=== PATIENT | male | born 1960 | race Caucasian/White ===

== ENCOUNTER 2016-08-13 19:42 | Emergency (ER) | payer OTHER ==
[~2016-08-13] VITALS: Ht 175.3 cm; Wt 60.0 kg
[~2016-08-13 19:42] MED LIST: CARD360C PO; DEPA500T3 PO; DIPH2%T PO; GABA100C4 PO; KETO2%T TOP; LURA80 PO; PLAV75TA PO; SERT100 PO; TRAZ50TA4 PO; TYLE3 PO; VITA-13 PO
[2016-08-13 19:45] VITALS: BP 116/65; PULSE 85; RESP 16; TEMP 98.2; O2SAT 98
--- NOTE | 2016-08-13 20:06 | PD ---
HPI Chief Complaint: Fall Time Seen by Provider: 19:50 Travel History International Travel<30 days: No Contact w/Intl Traveler<30days: No Traveled to known affect area: No History of Present Illness HPI 55-year-old male who presents via EMS for evaluation after fall. He reports that this evening he slipped at home and fell, striking his left arm/elbow against the ground. He also hit the left side of his head against the ground. No loss of consciousness. He is complaining of pain and laceration to the posterior left elbow, abrasion to the left forearm, mild left-sided head pain. Symptoms are mild, aggravated by movement. Last tetanus vaccination within 5 years. Denies any neck or back pain, chest pain or shortness of breath, abdominal pain, injury to the lower extremities. He endorses daily alcohol use , he reports that he drank beer tonight. He reports a history of stroke with residual left arm weakness. No other complaints. PFSH Past Medical History Hx Anticoagulant Therapy: Yes Arthritis: Yes Bipolar Disorder: Yes ( NON COMPLIANT WITH MEDS) Anxiety: Yes Depression: Yes Cancer: No Cardiovascular Problems: Yes High Cholesterol: Yes Chemotherapy: No Cerebrovascular Accident: Yes Diabetes: No Diminished Hearing: No Gastrointestinal Disorders: No Headaches: Yes Hypertension: Yes Inguinal Hernia: Yes (RIGHT ) Implanted Vascular Access Dvce: No Musculoskeletal: Yes (USES WALKER) Neurologic: Yes (PER HX...PREVIOUS STROKE) Psychiatric: Yes Respiratory: No Integumentary: Yes Immunizations Current: Yes Past Surgical History Abdominal Surgery: Yes (appendectomy) Appendectomy: Yes Neurologic Surgery: No Tonsillectomy: Yes Other Surgery: Yes (PER HX..APPY, CYST ON TOE, HERNIA, TONSILS") Social History Alcohol Use: Yes (DAILY, Four pack) Tobacco Use: Yes (1 PPD) Substance Use: No Allergies-Medications (Allergen,Severity, Reaction): Coded Allergies: Darvocet-N 100 (Verified Allergy, Severe, 08/13/16) Lisinopril (Unverified Allergy, Severe, 08/13/16) SWELLING Propoxyphene (Verified Allergy, Severe, 08/13/16) Reported Meds & Prescriptions Reported Meds & Active Scripts Active Keflex (Cephalexin) 500 Mg Cap 500 Mg PO Q6H 5 Days Review of Systems Except as stated in HPI: all other systems reviewed are Neg Physical Exam Narrative GENERAL: Disheveled appearing male in no acute distress, answering questions appropriately. SKIN: Warm and dry. There is a 1.5 cm linear laceration to the posterior left elbow. Minor abrasion of the dorsal left forearm. HEAD: Atraumatic. Normocephalic. No scalp hematoma or abrasion. EYES: Pupils equal and round. No scleral icterus. No injection or drainage. ENT: No nasal bleeding or discharge. Mucous membranes pink and moist. NECK: Trachea midline. No JVD. CARDIOVASCULAR: Regular rate and rhythm. No murmur appreciated. RESPIRATORY: No accessory muscle use. Clear to auscultation. Breath sounds equal bilaterally. GASTROINTESTINAL: Abdomen soft, non-tender, nondistended. Hepatic and splenic margins not palpable. MUSCULOSKELETAL: Skin as noted above. The patient has limited use of the left shoulder, elbow and wrist secondary to previous CVA. No obvious bony deformity. NEUROLOGICAL: Awake and alert. No obvious cranial nerve deficits. Motor grossly within normal limits. Normal speech. Data Data Last Documented VS Vital Signs Date Time Temp Pulse Resp B/P Pulse Ox O2 Delivery O2 Flow Rate FiO2 08/13/16 19:45 98.2 85 16 116/65 98 Orders Forearm (2vws) (08/13/16 ) Ct Brain W/O Iv Contrast(Rout) (08/13/16 ) Lidocai-Epi 1%-1:100,000 Inj (Xylocaine- (08/13/16 20:15) Elbow, Limited (Ap&Lat) (08/13/16 ) MDM Medical Decision Making Medical Screen Exam Complete: Yes Emergency Medical Condition: Yes Medical Record Reviewed: Yes Interpretation(s) CT brain reveals remote right-sided infarct, no acute abnormalities Differential Diagnosis Laceration, abrasion, open fracture, closed head injury, intracranial hemorrhage Narrative Course 55-year-old male presents after mechanical fall. He has a laceration to the posterior left elbow, abrasion to left forearm. Plan is for left elbow/forearm x-ray, CT of the brain. X-ray and CT imaging revealed no acute abnormalities. The laceration was repaired, the patient gave verbal consent. The laceration was repaired utilizing absorbable sutures as the patient would likely have significant difficulty with follow-up instructions given his history of alcoholism. He is stable for discharge. He is being discharged with a prescription for Keflex. Procedures Procedure Narrative LACERATION LOCATION: Posterior left elbow LENGTH: 1.5 cm NUMBER OF STITCHES/SHYANN: 4 REPAIR: The area of the laceration was prepped with Betadine and sterilely draped. The laceration was infiltrated with 1% lidocaine with epinephrine. The wound was copiously irrigated and explored without evidence of foreign body , tendon injury or neurovascular injury. The wound was closed using 4-0 chromic simple interrupted. This was a single layer repair. A sterile dressing was applied. The patient was advised to keep the dressing clean and dry. Patient tolerated the procedure well. Diagnosis Primary Impression: Laceration of left elbow Qualified Code: S51.012A - Laceration of left elbow, initial encounter Additional Instructions: Wash the wound gently with soap and water and apply antibiotic cream daily. Take antibiotics as prescribed. Follow-up with primary care physician as needed. Return for any emergent medical conditions. Med/Other Pt SpecificInfo: Prescription(s) given Scripts Cephalexin (Keflex)500 Mg [id number] Mg PO Q6H 5 Days Ref 0 Prov:Kayla Cooley MD 08/13/16 Disposition: 01 DISCHARGE HOME Condition: Stable Wilfredo Gutierrez Aug 13, 2016 20:06
[2016-08-13] MEDS ORDERED: LIDOCAINE 1%/EPINEPHrine 1:100,000 SOLN 20 ML VIAL INFIL ONE (20:15)
--- NOTE | 2016-08-13 21:00 | RADRPT ---
EXAM DATE/TIME: 08/13/2016 20:23 [facility] COMPARISON: No previous studies available for comparison. INDICATIONS : Trauma, fall. RADIATION DOSE: 52.13 CTDIvol (mGy) MEDICAL HISTORY : Cerebrovascular disease. Hypertension. SURGICAL HISTORY : None. ENCOUNTER: Initial ACUITY: 1 day PAIN SCALE: 5/10 LOCATION: cranial TECHNIQUE: Multiple contiguous axial images were obtained of the head. Using automated exposure control and adj ustment of the mA and/or kV according to patient size, radiation dose was kept as low as reasonably a chievable to obtain optimal diagnostic quality images. FINDINGS: There is a remote infarct in the right parieto-occipital region. No mass, hemorrhage or shift. No hyd rocephalus. No abnormal extra-axial fluid collections. No acute bony abnormalities. CONCLUSION: 1. Remote right sided infarct as above. No acute findings. Andrae Casas MD on August 13, 2016 at 20:57 Board Certified Radiologist. This report was verified electronically.
--- NOTE | 2016-08-13 21:51 | RADRPT ---
EXAM DATE/TIME: 08/13/2016 20:37 [facility] COMPARISON: No previous studies available for comparison. INDICATIONS : Patient fell landing on left arm. Lacerations to left forearm and left elbow. MEDICAL HISTORY : None. SURGICAL HISTORY : None. ENCOUNTER: Initial ACUITY: 1 day PAIN SCORE: 0/10 LOCATION: Left Forearm FINDINGS: Two view examination of the left forearm demonstrates no evidence of fracture or dislocation. Bony m ineralization is normal. The soft tissue structures are intact. CONCLUSION: Normal examination for a patient of this age. Andrae Casas MD on August 13, 2016 at 21:49 Board Certified Radiologist. This report was verified electronically.
--- NOTE | 2016-08-13 21:54 | RADRPT ---
EXAM DATE/TIME: 08/13/2016 20:39 [facility] COMPARISON: No previous studies available for comparison. INDICATIONS : Patient fell landing on left arm. Laceration to left forearm and elbow. MEDICAL HISTORY : None. SURGICAL HISTORY : None. ENCOUNTER: Initial ACUITY: 1 day PAIN SCORE: Non-responsive. LOCATION: Left Elbow FINDINGS: Two view examination of the left elbow demonstrates no joint effusion, fracture or dislocation. Bony mineralization is normal. CONCLUSION: 1. Soft tissue swelling over the extensor surface of the elbow. No acute fracture identified. Andrae Casas MD on August 13, 2016 at 21:50 Board Certified Radiologist. This report was verified electronically.
[2016-08-13] MEDS ORDERED: CEPH-460 PO (22:06)
[2016-08-14 03:30] VITALS: BP 120/52; PULSE 84; RESP 12; O2SAT 98
[2016-08-14 06:21] VITALS: BP 134/48; PULSE 88; RESP 14; O2SAT 99
== END 2016-08-14 06:48 | disposition home or self-care (01) ==
LOC: NEPB 19:42
DX: S51.012A Laceration without foreign body of left elbow, initial encounter (principal); S50.812A Abrasion of left forearm, initial encounter; I10 Essential (primary) hypertension; R51 Headache; E78.00 Pure hypercholesterolemia, unspecified; F17.210 Nicotine dependence, cigarettes, uncomplicated; W18.09XA Striking against other object with subsequent fall, initial encounter; Y93.9 Activity, unspecified; Y92.009 Unspecified place in unspecified non-institutional (private) residence as the place of occurrence of the external cause
CPT/HCPCS: 12001; 70450; 73070; 73090

== ENCOUNTER 2016-09-08 09:23 | Emergency (ER) | payer OTHER ==
[~2016-09-08] VITALS: Ht 170.2 cm; Wt 70.0 kg
[~2016-09-08 09:23] MED LIST changes: -CARD360C PO; +CEPH-460 PO; -DEPA500T3 PO; -DIPH2%T PO; -GABA100C4 PO; -KETO2%T TOP; -LURA80 PO; -PLAV75TA PO; -SERT100 PO; -TRAZ50TA4 PO; -TYLE3 PO; -VITA-13 PO
[2016-09-08 09:26] VITALS: BP 114/82; PULSE 76; RESP 18; TEMP 98; O2SAT 97
--- NOTE | 2016-09-08 12:25 | PD ---
HPI Chief Complaint: Pain: Acute or Chronic Time Seen by Provider: 12:17 Travel History International Travel<30 days: No Contact w/Intl Traveler<30days: No Traveled to known affect area: No History of Present Illness HPI 56 year old male presents to the emergency department for evaluation of left elbow wound and possible infection. Patient has a chronic wound to the left posterior elbow. He is here with his community case manager from the [place]. Patient fell on August 13 and reopened up his chronic wound to the left elbow. Sutures were placed at that time in the ED. His community case manager states that he saw him a few days after the stitches were placed and the stitches had already fallen out, most likely from patient rubbing his elbow on his chair. He was on 14 days of Keflex by his primary care provider after this occurred. He has been finished with this for approximately 1-2 weeks. The patient denies any pain, fevers/ chills. He has mild drainage from the wound to the left elbow and mild erythema. He has history of stroke with left sided deficit and has chronically reduced ROM of his left elbow, but states he has his typical range of motion. No new falls or other complaints at this time. PFSH Past Medical History Hx Anticoagulant Therapy: Yes Arthritis: Yes Bipolar Disorder: Yes ( NON COMPLIANT WITH MEDS) Anxiety: Yes Depression: Yes Cancer: No Cardiovascular Problems: Yes High Cholesterol: Yes Chemotherapy: No Cerebrovascular Accident: Yes Diabetes: No Diminished Hearing: No Gastrointestinal Disorders: No Headaches: Yes Hypertension: Yes Inguinal Hernia: Yes (RIGHT ) Implanted Vascular Access Dvce: No Musculoskeletal: Yes (USES WALKER) Neurologic: Yes (PER HX...PREVIOUS STROKE) Psychiatric: Yes Respiratory: No Integumentary: Yes Immunizations Current: Yes Past Surgical History Abdominal Surgery: Yes (appendectomy) Appendectomy: Yes Neurologic Surgery: No Tonsillectomy: Yes Other Surgery: Yes (PER HX..APPY, CYST ON TOE, HERNIA, TONSILS") Social History Alcohol Use: Yes (DAILY, Four pack) Tobacco Use: Yes (1 PPD) Substance Use: No Allergies-Medications (Allergen,Severity, Reaction): Coded Allergies: Darvocet-N 100 (Verified Allergy, Severe, 08/13/16) Lisinopril (Unverified Allergy, Severe, 08/13/16) SWELLING Propoxyphene (Verified Allergy, Severe, 08/13/16) Reported Meds & Prescriptions Reported Meds & Active Scripts Active Keflex (Cephalexin) 500 Mg Cap 500 Mg PO Q6H 5 Days Review of Systems Except as stated in HPI: all other systems reviewed are Neg Physical Exam Narrative GENERAL: Thin male patient, afebrile. SKIN: Warm and dry. Patient has a 2 cm chronic wound to the left posterior elbow with mild drainage noted. Mild surrounding erythema. No tenderness to palpation. HEAD: Normocephalic. Atraumatic. EYES: No scleral icterus. No injection or drainage. NECK: Supple, trachea midline. No JVD or lymphadenopathy. CARDIOVASCULAR: Regular rate and rhythm without murmurs, gallops, or rubs. Left radial pulse 2+. RESPIRATORY: Breath sounds equal bilaterally. No accessory muscle use. GASTROINTESTINAL: Abdomen soft, non-tender, nondistended. MUSCULOSKELETAL: No cyanosis, or edema. Patient has limited flexion of the left elbow due to chronic deficit from previous stroke, but has no difficulty moving his elbow. No evidence of septic joint. BACK: Nontender without obvious deformity. No CVA tenderness. Data Data Last Documented VS Vital Signs Date Time Temp Pulse Resp B/P Pulse Ox O2 Delivery O2 Flow Rate FiO2 09/08/16 09:26 98.0 76 18 114/82 97 Room Air Orders Wound Culture And Gram Stain (09/08/16 12:15) Elbow, Limited (Ap&Lat) (09/08/16 ) [facility] Medical Decision Making Medical Screen Exam Complete: Yes Emergency Medical Condition: Yes Medical Record Reviewed: Yes Interpretation(s) x-ray left elbow - CONCLUSION: Bony fragment anterior joint space could be loose body or old fracture fragment. Differential Diagnosis chronic wound vs. cellulitis vs. septic joint Narrative Course 56 year old male presents to the emergency department with his social secretary for evaluation of a chronic wound to his left elbow that he has had for several years. Physical exam shows mild drainage and mild erythema, but no evidence of abscess or septic joint. Patient is afebrile and VSS. Wound culture is taken. X-ray of the left elbow is ordered and pending. X-ray of the left elbow shows bony fragment anterior joint space could be loose body or old fracture fragment. Patient will be discharged with a prescription for clindamycin. He is instructed on proper wound care. He is to follow up with his primary care physician. He is to return to the emergency department for any acute, worsening of symptoms. Diagnosis Primary Impression: Open wound of left elbow Qualified Code: S51.002A - Open wound of left elbow, initial encounter Referrals: Primary Care Physician call for appointment Patient Instructions: Chronic Wound Care (ED), General Instructions Additional Instructions: Clean twice daily with soap and water and apply over the counter antibiotic ointment. Take antibiotic as directed until gone. Follow up with your primary care physician in 2 days. Return to the emergency department for any acute, worsening of symptoms. Med/Other Pt SpecificInfo: Prescription(s) given Scripts Clindamycin 300 Mg [id number] Mg PO Q6H 10 Days Ref 0 Prov:Lin Toussaint 09/08/16 Disposition: 01 DISCHARGE HOME Condition: Stable Lin Tuossaint Sep 08, 2016 12:25
--- NOTE | 2016-09-08 12:48 | RADRPT ---
EXAM DATE/TIME: 09/08/2016 12:32 [facility] COMPARISON: No previous studies available for comparison. INDICATIONS : Left elbow pain, fall out of wheelchair. MEDICAL HISTORY : None. SURGICAL HISTORY : None. ENCOUNTER: Initial ACUITY: 1 day PAIN SCORE: 6/10 LOCATION: Left elbow FINDINGS: Two view examination of the left elbow demonstrates degenerative changes. There is a bony fragment in the anterior joint space likely loose body or old fracture fragment. Soft tissue swelling posteriorl y. CONCLUSION: Bony fragment anterior joint space could be loose body or old fracture fragment. Jose Griggs MD on September 08, 2016 at 12:42 Board Certified Radiologist. This report was verified electronically.
[2016-09-08] MEDS ORDERED: CLIN1CAP6 PO (12:51)
== END 2016-09-08 14:09 | disposition home or self-care (01) ==
LOC: NETRI 09:23
DX: S51.002D Unspecified open wound of left elbow, subsequent encounter (principal); B95.61 Methicillin susceptible Staphylococcus aureus infection as the cause of diseases classified elsewhere; B96.5 Pseudomonas (aeruginosa) (mallei) (pseudomallei) as the cause of diseases classified elsewhere; I25.2 Old myocardial infarction; I10 Essential (primary) hypertension; F17.210 Nicotine dependence, cigarettes, uncomplicated; W05.0XXD Fall from non-moving wheelchair, subsequent encounter; Z88.5 Allergy status to narcotic agent; Z79.01 Long term (current) use of anticoagulants; Z88.8 Allergy status to other drugs, medicaments and biological substances
CPT/HCPCS: 73070; 86403; 87070; 87077; 87186; 87205; 99283

== ENCOUNTER 2017-02-08 17:52 | Emergency (ER) | payer OTHER ==
[~2017-02-08] VITALS: Ht 172.7 cm; Wt 65.0 kg
[~2017-02-08 17:52] MED LIST changes: +CLIN1CAP6 PO
[2017-02-08 18:01] VITALS: BP 118/79; PULSE 124; RESP 16; TEMP 98.1; O2SAT 97
== END 2017-02-08 20:21 | disposition left against medical advice (07) ==
LOC: NEPD 17:52
DX: Z04.3 Encounter for examination and observation following other accident (principal); Z53.21 Procedure and treatment not carried out due to patient leaving prior to being seen by health care provider
CPT/HCPCS: 99281

== ENCOUNTER 2017-02-16 23:50 | Emergency (ER) | payer OTHER ==
[~2017-02-16] VITALS: Ht 170.2 cm; Wt 60.0 kg
[2017-02-16 23:59] VITALS: BP 96/56; PULSE 69; RESP 18; TEMP 99.1; O2SAT 95
--- NOTE | 2017-02-17 00:15 | PD ---
HPI Chief Complaint: Psychiatric Symptoms Time Seen by Provider: 00:13 Travel History International Travel<30 days: No Contact w/Intl Traveler<30days: No Traveled to known affect area: No History of Present Illness HPI Patient comes in under a [place] act by police for going in and out of traffic per [place] act. 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 Patient denies any medical concerns at this time. Denies any chest pain, shortness of breath, fevers, bowel pain, nausea, vomiting, or headaches. Patient has residual left-sided weakness from a stroke that occurred 3 or 4 years ago. Patient denies any homicidal or suicidal ideations. PFSH Past Medical History Hx Anticoagulant Therapy: Yes Arthritis: Yes Bipolar Disorder: Yes ( NON COMPLIANT WITH MEDS) Anxiety: Yes Depression: Yes Cancer: No Cardiovascular Problems: Yes High Cholesterol: Yes Chemotherapy: No Cerebrovascular Accident: Yes Diabetes: No Diminished Hearing: No Gastrointestinal Disorders: No Headaches: Yes Hypertension: Yes Inguinal Hernia: Yes (RIGHT ) Implanted Vascular Access Dvce: No Musculoskeletal: Yes (USES WALKER) Neurologic: Yes (PER HX...PREVIOUS STROKE) Psychiatric: Yes Respiratory: No Integumentary: Yes Immunizations Current: Yes Tetanus Vaccination: Unknown Influenza Vaccination: No Past Surgical History Abdominal Surgery: Yes (appendectomy) Appendectomy: Yes Neurologic Surgery: No Tonsillectomy: Yes Other Surgery: Yes (PER HX..APPY, CYST ON TOE, HERNIA, TONSILS") Social History Alcohol Use: Yes (DAILY, Four pack) Tobacco Use: Yes (1 PPD) Substance Use: No Allergies-Medications (Allergen,Severity, Reaction): Coded Allergies: Darvocet-N 100 (Verified Allergy, Severe, 08/13/16) Lisinopril (Unverified Allergy, Severe, 08/13/16) SWELLING Propoxyphene (Verified Allergy, Severe, 08/13/16) Reported Meds & Prescriptions Reported Meds & Active Scripts Active Clindamycin (Clindamycin HCl) 300 Mg Cap 300 Mg PO Q6H 10 Days Keflex (Cephalexin) 500 Mg Cap 500 Mg PO Q6H 5 Days Review of Systems Except as stated in HPI: all other systems reviewed are Neg Physical Exam Narrative GENERAL: Well-developed, under nourished, in no acute distress, and non-ill appearing. SKIN: Focused skin assessment warm and dry. HEAD: Atraumatic. Normocephalic. EYES: Pupils equal and round. EOMI. No scleral icterus. No injection or drainage. ENT: No nasal bleeding or discharge. Mucous membranes pink and moist. NECK: Trachea midline. Supple. No nuclear rigidity. CARDIOVASCULAR: Regular rate and rhythm. No murmur appreciated. RESPIRATORY: No accessory muscle use. No respiratory distress. Clear to auscultation. Breath sounds equal bilaterally. MUSCULOSKELETAL: No obvious deformities. No clubbing. No cyanosis. No edema. Decreased range of motion left hand from previous stroke. NEUROLOGICAL: Awake and alert. No obvious cranial nerve deficits. Motor grossly within normal limits. Normal speech. PSYCHIATRIC: Appropriate mood and affect; insight and judgment normal. Data Data Last Documented VS Vital Signs Date Time Temp Pulse Resp B/P Pulse Ox O2 Delivery O2 Flow Rate FiO2 02/16/17 23:59 99.1 69 18 96/56 95 Orders Complete Blood Count With Diff (02/17/17 00:11) Comprehensive Metabolic Panel (02/17/17 00:11) Psych Screen (02/17/17 00:11) Drug Screen, Random Urine (02/17/17 00:11) Alcohol (Ethanol) (02/17/17 00:11) Salicylates (Aspirin) (02/17/17 00:11) Tylenol (Acetaminophen) (02/17/17 00:11) Potassium Chloride (Kcl) (02/17/17 01:45) Labs Laboratory Tests Test 02/17/17 00:40 White Blood Count 5.3 TH/MM3 Red Blood Count 4.37 MIL/MM3 Hemoglobin 13.9 GM/DL Hematocrit 42.3 % Mean Corpuscular Volume 96.8 FL Mean Corpuscular Hemoglobin 31.8 PG Mean Corpuscular Hemoglobin 32.8 % Concent Red Cell Distribution Width 15.3 % Platelet Count 114 TH/MM3 Mean Platelet Volume 10.6 FL Neutrophils (%) (Auto) 62.1 % Lymphocytes (%) (Auto) 29.3 % Monocytes (%) (Auto) 5.5 % Eosinophils (%) (Auto) 2.1 % Basophils (%) (Auto) 1.0 % Neutrophils # (Auto) 3.3 TH/MM3 Lymphocytes # (Auto) 1.6 TH/MM3 Monocytes # (Auto) 0.3 TH/MM3 Eosinophils # (Auto) 0.1 TH/MM3 Basophils # (Auto) 0.1 TH/MM3 CBC Comment DIFF FINAL Differential Comment Sodium Level 144 MEQ/L Potassium Level 3.3 MEQ/L Chloride Level 112 MEQ/L Carbon Dioxide Level 21.6 MEQ/L Anion Gap 10 MEQ/L Blood Urea Nitrogen 21 MG/DL Creatinine 1.27 MG/DL Estimat Glomerular Filtration 59 ML/MIN Rate Random Glucose 78 MG/DL Calcium Level 8.8 MG/DL Total Bilirubin 0.1 MG/DL Aspartate Amino Transf 15 U/L (AST/SGOT) Alanine Aminotransferase 18 U/L (ALT/SGPT) Alkaline Phosphatase 63 U/L Total Protein 6.5 GM/DL Albumin 3.4 GM/DL Salicylates Level 3.5 MG/DL Acetaminophen Level LESS THAN 2.0 MCG/ML Ethyl Alcohol Level 20 MG/DL MDM Medical Decision Making Medical Screen Exam Complete: Yes Emergency Medical Condition: Yes Differential Diagnosis Homicidal, suicidal, depression, electrolyte abnormality, other Narrative Course Patient was seen and examined. Labs were obtained and reviewed with exception urine drug screen has not been set yet. Patient's potassium was replaced orally. Patient medically cleared for further treatment and evaluation by psych. Final disposition per psych. Diagnosis Primary Impression: Hypokalemia Additional Impression: Medical clearance for psychiatric admission Condition: Stable Kun Robles Feb 17, 2017 00:15
[2017-02-17 00:51] LABS: AUTOMATED NEUTROPHIL # 3.3 TH/MM3 (1.8-7.7); BASOPHIL # 0.1 TH/MM3 (0-0.2); EOSINOPHIL # 0.1 TH/MM3 (0-0.4); EOSINOPHIL % 2.1 % (0.0-4.0); HEMATOCRIT 42.3 % (39.0-51.0); HEMO FLAGS DIFF FINAL; LYMPH % 29.3 % (9.0-44.0); LYMPHOCYTE # 1.6 TH/MM3 (1.0-4.8); MEAN CELL VOLUME 96.8 FL (80.0-100.0); MEAN CORPUSCULAR HEMOGLOBIN 31.8 PG (27.0-34.0); MEAN CORPUSCULAR HGB CONC 32.8 % (32.0-36.0); MONO % 5.5 % (0.0-8.0); NEUT % 62.1 % (16.0-70.0); PLATELET COUNT 114 TH/MM3 (150-450); RED BLOOD COUNT 4.37 MIL/MM3 (4.50-5.90); RED CELL DISTRIBUTION WIDTH 15.3 % (11.6-17.2); WHITE BLOOD COUNT 5.3 TH/MM3 (4.0-11.0)
[2017-02-17 01:09] LABS: ACETAMINOPHEN LESS THAN 2.0 MCG/ML (10.0-30.0); ALT (GPT) 18 U/L (12-78); ANION GAP 10 MEQ/L (5-15); AST (GOT) 15 U/L (15-37); BICARBONATE 21.6 MEQ/L (21.0-32.0); BLOOD UREA NITROGEN 21 MG/DL (7-18); CHLORIDE 112 MEQ/L (98-107); GLOMERULAR FILTRATION RATE 59 ML/MIN (>89); POTASSIUM 3.3 MEQ/L (3.5-5.1); SODIUM (NA) 144 MEQ/L (136-145)
[2017-02-17 01:10] LABS: ALKALINE PHOSPHATASE 63 U/L (45-117); TOTAL BILIRUBIN ADULT 0.1 MG/DL (0.2-1.0)
[2017-02-17] MEDS ORDERED: POTASSIUM CHLORIDE 20 MEQ CONTROLLED RELEASE TAB PO ONE (01:45)
[2017-02-17 04:40] VITALS: BP 103/71; PULSE 51; RESP 18; O2SAT 97
--- NOTE | 2017-02-17 11:34 | PD.PSY.CON ---
Provisional Diagnosis Admission Date History of Present Illness Service Psychiatry Consult Requested By Primary Care Physician [facility] HPI Patient is a 50-year-old man, domicile in [facility], single, , on SSI, service-connected, with psychiatric history of bipolar disorder, he is on Zyprexa 20 mg daily, [facility], medical history of CVAs, HTN , who comes in under a Reed act by police for going in and out of traffic per Reed act. 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 On psychiatric evaluation today the patient is calm, cooperative and pleasant. Patient says that he was doing nothing wrong with police Reed acting him. He says that he was just asking for some money to people. Patient denies depressive symptoms, anxiety, barbara or psychosis. Patient denies suicidal and homicidal ideation, he denies visual and auditory hallucinations. Patient is future oriented, compliant with medications, he was supposed to have an appointment with psychiatry today. Oriented 3, no attention deficit, patient reports daily use of alcohol, 4-6 beers per day, he denies withdrawal symptoms, he denies history of detox rehabs. Review of Systems Constitutional: DENIES: Diaphoretic episodes, Fatigue, Fever, Weight gain, Weight loss, Chills, Dizziness, Change in appetite, Night Sweats Endocrine: DENIES: Heat/cold intolerance, Polydipsia, Polyuria, Polyphagia Eyes: DENIES: Blurred vision, Diplopia, Eye inflammation, Eye pain, Vision loss , Photosensitivity, Double Vision Ears, nose, mouth, throat: DENIES: Tinnitus, Hearing loss, Vertigo, Nasal discharge, Oral lesions, Throat pain, Hoarseness, Ear Pain, Running Nose, Epistaxis, Sinus Pain, Toothache, Odynophagia Respiratory: DENIES: Apneas, Cough, Snoring, Wheezing, Hemoptysis, Sputum production, Shortness of breath Cardiovascular: DENIES: Chest pain, Palpitations, Syncope, Dyspnea on Exertion , PND, Lower Extremity Edema, Orthopnea, Claudication Gastrointestinal: DENIES: Abdominal pain, Black stools, Bloody stools, Constipation, Diarrhea, Nausea, Vomiting, Difficulty Swallowing, Anorexia Musculoskeletal: DENIES: Joint pain, Muscle aches, Stiffness, Joint Swelling, Back pain, Neck pain Integumentary: DENIES: Abnormal pigmentation, Nail changes, Pruritus, Rash Hematologic/lymphatic: DENIES: Bruising, Lymphadenopathy Immunologic/allergic: DENIES: Eczema, Urticaria Neurologic: DENIES: Abnormal gait, Headache, Localized weakness, Paresthesias, Seizures, Speech Problems, Tremor, Poor Balance Psychiatric: DENIES: Anxiety, Confusion, Mood changes, Depression, Hallucinations, Agitation, Suicidal Ideation, Homicidal Ideation, Delusions Past Family Social History Coded Allergies: Darvocet-N 100 (Verified Allergy, Severe, 08/13/16) Lisinopril (Unverified Allergy, Severe, 08/13/16) SWELLING Propoxyphene (Verified Allergy, Severe, 08/13/16) Discontinued Scripts Clindamycin 300 Mg [id number] Mg PO Q6H 10 Days Ref 0 Prov:Lin Toussaint 09/08/16 Cephalexin (Keflex)500 Mg [id number] Mg PO Q6H 5 Days Ref 0 Prov:Kayla Coolye MD 08/13/16 Family History Patient denies family psychiatric history Social History Patient was born and raised in [place], he lives in [place], he is single, he lives with a roommate, he is on SSI, he also has [facility] benefits, , service- connected, his highest level vocations are some college credits Patient's Strengths (min. 2) Outpatient psychiatric care Physical Exam No tremors, no withdrawal, no psychomotor retardation or agitation, Vital Signs Vital Signs Date Time Temp Pulse Resp B/P Pulse Ox O2 Delivery O2 Flow Rate FiO2 02/17/17 04:40 51 18 103/71 97 Room Air 02/16/17 23:59 99.1 Lab Results Labs Laboratory Tests Test 02/17/17 00:40 White Blood Count 5.3 TH/MM3 Red Blood Count 4.37 MIL/MM3 Hemoglobin 13.9 GM/DL Hematocrit 42.3 % Mean Corpuscular Volume 96.8 FL Mean Corpuscular Hemoglobin 31.8 PG Mean Corpuscular Hemoglobin 32.8 % Concent Red Cell Distribution Width 15.3 % Platelet Count 114 TH/MM3 Mean Platelet Volume 10.6 FL Neutrophils (%) (Auto) 62.1 % Lymphocytes (%) (Auto) 29.3 % Monocytes (%) (Auto) 5.5 % Eosinophils (%) (Auto) 2.1 % Basophils (%) (Auto) 1.0 % Neutrophils # (Auto) 3.3 TH/MM3 Lymphocytes # (Auto) 1.6 TH/MM3 Monocytes # (Auto) 0.3 TH/MM3 Eosinophils # (Auto) 0.1 TH/MM3 Basophils # (Auto) 0.1 TH/MM3 CBC Comment DIFF FINAL Differential Comment Sodium Level 144 MEQ/L Potassium Level 3.3 MEQ/L Chloride Level 112 MEQ/L Carbon Dioxide Level 21.6 MEQ/L Anion Gap 10 MEQ/L Blood Urea Nitrogen 21 MG/DL Creatinine 1.27 MG/DL Estimat Glomerular Filtration 59 ML/MIN Rate Random Glucose 78 MG/DL Calcium Level 8.8 MG/DL Total Bilirubin 0.1 MG/DL Aspartate Amino Transf 15 U/L (AST/SGOT) Alanine Aminotransferase 18 U/L (ALT/SGPT) Alkaline Phosphatase 63 U/L Total Protein 6.5 GM/DL Albumin 3.4 GM/DL Salicylates Level 3.5 MG/DL Acetaminophen Level LESS THAN 2.0 MCG/ML Ethyl Alcohol Level 20 MG/DL Mental Status Examination Appearance man, he looks older than his stated age, poor hygiene, he is calm and cooperative, Speech: Unremarkable Orientation: x3 Memory: Unremarkable Thought Process: Logical Thought Content: Unremarkable Hallucination Type: None Attention and Concentration: Good Suicidal Ideation: No Previous Suicide Attempts: No Homicidal Ideation: No Previous Homicide Attempts: No Judgment: WNL Affect: Good Mood: Appropriate Motor Activity: Normal gait Assessment & Plan Problem List: (1) Alcohol abuse with alcohol-induced mood disorder Assessment & Plan: At the moment of this evaluation the patient doesn't present any evidence of substantial depression, anxiety, barbara or psychosis. Patient denies suicidal and homicidal ideation, he denies visual and auditory hallucinations. She reports daily use of alcohol, but now clinically sober, no withdrawal symptoms. Patient is logical, coherent and relevant. Oriented 3. I did not see any indication for psychiatric admission at this moment. [facility], continue olanzapine 20 mg. Reed act will be lifted.. ICD Code: F10.14 Assessment & Plan Estimated LOS: Jose Francisco Hurd MD Feb 17, 2017 11:34
== END 2017-02-17 09:11 | disposition home or self-care (01) ==
LOC: NEPD 23:50
DX: Z02.89 Encounter for other administrative examinations (principal); E87.6 Hypokalemia; F10.14 Alcohol abuse with alcohol-induced mood disorder; I10 Essential (primary) hypertension; E78.00 Pure hypercholesterolemia, unspecified; F17.200 Nicotine dependence, unspecified, uncomplicated; Z79.01 Long term (current) use of anticoagulants; Z86.79 Personal history of other diseases of the circulatory system; Z87.39 Personal history of other diseases of the musculoskeletal system and connective tissue; Z86.59 Personal history of other mental and behavioral disorders; Z86.69 Personal history of other diseases of the nervous system and sense organs
CPT/HCPCS: 80053; 80307; 85025; 99283

== ENCOUNTER 2017-02-26 19:28 | Emergency (ER) | payer OTHER ==
[~2017-02-26] VITALS: Ht 170.2 cm; Wt 64.0 kg
--- NOTE | 2017-02-26 19:40 | PD ---
HPI Chief Complaint: MED CLEARANCE Time Seen by Provider: 19:38 Travel History International Travel<30 days: No Contact w/Intl Traveler<30days: No Traveled to known affect area: No History of Present Illness HPI PATIENT BROUGHT IN BY BI CANELA A JAMESON ACT....REASON FOR BA IS DUE TO RUNNING ONTO ONCOMING TRAFFIC WHILE CHASING OTHER CARS. PFSH Past Medical History Hx Anticoagulant Therapy: Yes Arthritis: Yes Bipolar Disorder: Yes ( NON COMPLIANT WITH MEDS) Anxiety: Yes Depression: Yes Cancer: No Cardiovascular Problems: Yes High Cholesterol: Yes Chemotherapy: No Cerebrovascular Accident: Yes Diabetes: No Diminished Hearing: No Gastrointestinal Disorders: No Headaches: Yes Hypertension: Yes Inguinal Hernia: Yes (RIGHT ) Implanted Vascular Access Dvce: No Musculoskeletal: Yes (USES WALKER) Neurologic: Yes (PER HX...PREVIOUS STROKE) Psychiatric: Yes Respiratory: No Integumentary: Yes Immunizations Current: Yes Past Surgical History Abdominal Surgery: Yes (appendectomy) Appendectomy: Yes Neurologic Surgery: No Tonsillectomy: Yes Other Surgery: Yes (PER HX..APPY, CYST ON TOE, HERNIA, TONSILS") Social History Alcohol Use: Yes (DAILY, Four pack) Tobacco Use: Yes (1 PPD) Substance Use: No Allergies-Medications (Allergen,Severity, Reaction): Coded Allergies: Darvocet-N 100 (Verified Allergy, Severe, 02/26/17) Lisinopril (Unverified Allergy, Severe, 02/26/17) SWELLING Propoxyphene (Verified Allergy, Severe, 02/26/17) Reported Meds & Prescriptions Reported Meds & Active Scripts Active Active Prescriptions or Reported Medications Unobtainable Review of Systems Except as stated in HPI: all other systems reviewed are Neg Physical Exam Narrative GENERAL: POORLY KEPT SKIN: Warm and dry. HEAD: Atraumatic. Normocephalic. EYES: Pupils equal and round. No scleral icterus. No injection or drainage. ENT: No nasal bleeding or discharge. Mucous membranes pink and moist. NECK: Trachea midline. No JVD. CARDIOVASCULAR: Regular rate and rhythm. RESPIRATORY: No accessory muscle use. Clear to auscultation. Breath sounds equal bilaterally. GASTROINTESTINAL: Abdomen soft, non-tender, nondistended. Hepatic and splenic margins not palpable. MUSCULOSKELETAL: Extremities without clubbing, cyanosis, or edema. No obvious deformities. NEUROLOGICAL: Awake and alert. No obvious cranial nerve deficits. Motor grossly within normal limits. Five out of 5 muscle strength in the arms and legs EXCEPT LUE WHICH IS IN FLEXED/CONTRACTED STATE. Normal speech. PSYCHIATRIC: Appropriate mood and affect; insight and judgment normal. Data Data Last Documented VS Vital Signs Date Time Temp Pulse Resp B/P Pulse Ox O2 Delivery O2 Flow Rate FiO2 02/27/17 08:23 57 16 165/105 97 Room Air 02/26/17 19:41 98.9 Orders Complete Blood Count With Diff (02/26/17 19:41) Comprehensive Metabolic Panel (02/26/17 19:41) Thyroid Stimulating Hormone (02/26/17 19:41) Urinalysis - C+S If Indicated (02/26/17 19:41) Electrocardiogram (02/26/17 19:41) Psych Screen (02/26/17 19:41) Drug Screen, Random Urine (02/26/17 19:41) Alcohol (Ethanol) (02/26/17 19:41) Salicylates (Aspirin) (02/26/17 19:41) Tylenol (Acetaminophen) (02/26/17 19:41) Diet Regular Basic (02/27/17 Breakfast) Labs Laboratory Tests Test 02/26/17 02/27/17 19:55 02:15 White Blood Count 7.9 TH/MM3 Red Blood Count 4.48 MIL/MM3 Hemoglobin 14.3 GM/DL Hematocrit 42.7 % Mean Corpuscular Volume 95.3 FL Mean Corpuscular Hemoglobin 32.0 PG Mean Corpuscular Hemoglobin 33.5 % Concent Red Cell Distribution Width 14.7 % Platelet Count 92 TH/MM3 Mean Platelet Volume 9.9 FL Neutrophils (%) (Auto) 78.6 % Lymphocytes (%) (Auto) 14.3 % Monocytes (%) (Auto) 6.0 % Eosinophils (%) (Auto) 0.6 % Basophils (%) (Auto) 0.5 % Neutrophils # (Auto) 6.2 TH/MM3 Lymphocytes # (Auto) 1.1 TH/MM3 Monocytes # (Auto) 0.5 TH/MM3 Eosinophils # (Auto) 0.1 TH/MM3 Basophils # (Auto) 0.0 TH/MM3 CBC Comment AUTO DIFF Differential Comment AUTO DIFF CONFIRMED Platelet Estimate LOW Platelet Morphology Comment NORMAL Sodium Level 145 MEQ/L Potassium Level 3.6 MEQ/L Chloride Level 113 MEQ/L Carbon Dioxide Level 25.7 MEQ/L Anion Gap 6 MEQ/L Blood Urea Nitrogen 24 MG/DL Creatinine 1.30 MG/DL Estimat Glomerular Filtration 57 ML/MIN Rate Random Glucose 93 MG/DL Calcium Level 8.6 MG/DL Total Bilirubin 0.4 MG/DL Aspartate Amino Transf 30 U/L (AST/SGOT) Alanine Aminotransferase 30 U/L (ALT/SGPT) Alkaline Phosphatase 66 U/L Total Protein 6.8 GM/DL Albumin 3.8 GM/DL Thyroid Stimulating Hormone 2.840 uIU/ML 3rd Gen Salicylates Level 4.1 MG/DL Acetaminophen Level LESS THAN 2.0 MCG/ML Ethyl Alcohol Level LESS THAN 3 MG/DL Urine Color YELLOW Urine Turbidity CLEAR Urine pH 6.5 Urine Specific [place] 1.023 Urine Protein TRACE mg/dL Urine Glucose (UA) NEG mg/dL Urine Ketones NEG mg/dL Urine Occult Blood NEG Urine Nitrite NEG Urine Bilirubin NEG Urine Urobilinogen 2.0 MG/DL Urine Leukocyte Esterase NEG Urine WBC 1 /hpf Urine Mucus FEW /lpf Microscopic Urinalysis Comment CULT NOT INDICATED Urine Opiates Screen NEG Urine Barbiturates Screen NEG Urine Amphetamines Screen NEG Urine Benzodiazepines Screen NEG Urine Cocaine Screen POS Urine Cannabinoids Screen NEG MDM Medical Decision Making Medical Screen Exam Complete: Yes Emergency Medical Condition: Yes Medical Record Reviewed: Yes Interpretation(s) NSR 70, NL INTERVALS, P MITRALE, NO STEMI PATTERN Differential Diagnosis electrolyte abnl v intoxication v thyroid dz Narrative Course patient found to have nl electrolytes, nl thyroid function, and only marijuana on board....pt medically cleared for psych Diagnosis Primary Impression: Medical clearance for psychiatric admission Scripts Unable to Obtain Active Prescriptions or Reported Meds Neno Duke MD Feb 26, 2017 19:40
[2017-02-26 19:41] VITALS: BP 116/78; PULSE 82; RESP 15; TEMP 98.9; O2SAT 96
[2017-02-26 20:32] LABS: AUTOMATED NEUTROPHIL # 6.2 TH/MM3 (1.8-7.7); BASOPHIL % 0.5 % (0.0-2.0); EOSINOPHIL # 0.1 TH/MM3 (0-0.4); EOSINOPHIL % 0.6 % (0.0-4.0); HEMATOCRIT 42.7 % (39.0-51.0); LYMPH % 14.3 % (9.0-44.0); LYMPHOCYTE # 1.1 TH/MM3 (1.0-4.8); MEAN CELL VOLUME 95.3 FL (80.0-100.0); MEAN CORPUSCULAR HGB CONC 33.5 % (32.0-36.0); NEUT % 78.6 % (16.0-70.0); PLATELET COUNT 92 TH/MM3 (150-450); RED BLOOD COUNT 4.48 MIL/MM3 (4.50-5.90); RED CELL DISTRIBUTION WIDTH 14.7 % (11.6-17.2); WHITE BLOOD COUNT 7.9 TH/MM3 (4.0-11.0)
[2017-02-26 20:37] LABS: ANION GAP 6 MEQ/L (5-15); AST (GOT) 30 U/L (15-37); BICARBONATE 25.7 MEQ/L (21.0-32.0); BLOOD UREA NITROGEN 24 MG/DL (7-18); CHLORIDE 113 MEQ/L (98-107); GLOMERULAR FILTRATION RATE 57 ML/MIN (>89); POTASSIUM 3.6 MEQ/L (3.5-5.1); SODIUM (NA) 145 MEQ/L (136-145)
[2017-02-26 20:41] LABS: HEMO FLAGS AUTO DIFF
[2017-02-26 20:46] LABS: ALKALINE PHOSPHATASE 66 U/L (45-117); ALT (GPT) 30 U/L (12-78); TOTAL BILIRUBIN ADULT 0.4 MG/DL (0.2-1.0)
[2017-02-26 20:50] LABS: ACETAMINOPHEN LESS THAN 2.0 MCG/ML (10.0-30.0)
[2017-02-26 21:16] LABS: PLATELET ESTIMATE SMEAR LOW (NORMAL); PLATELET MORPHOLOGY NORMAL (NORMAL); SCAN/DIFF AUTO DIFF CONFIRMED
[2017-02-27 02:38] LABS: BLOOD, URINE NEG (NEG); COMMENT (UR) CULT NOT INDICATED; CULTURE IF INDICATED CULT NOT INDICATED; GLUCOSE,URINE NEG (NEG); KETONE, URINE NEG (NEG); MUCUS URINE FEW /lpf (OCC); NITRITE,URINE NEG (NEG); PH, URINE 6.5 (5.0-8.5); URINE COLOR YELLOW (YELLW/STRAW)
[2017-02-27 02:46] LABS: AMPHETAMINE, URINE NEG (NEG); BARBITURATES, URINE NEG (NEG); COCAINE, URINE POS (NEG)
[2017-02-27 08:23] VITALS: BP 165/105; PULSE 57; RESP 16; O2SAT 97
--- NOTE | 2017-02-27 12:10 | PD.PSY.CON ---
Provisional Diagnosis Admission Date Date of consultation 02/27/2017 [place] I. 1. Polysubstance abuse [place] II. Deferred History of Present Illness Service Psychiatry Consult Requested By Emergency department Reason for Consult Reed act Primary Care Physician [facility] Mr. Schaeffer is a 56-year-old male with a reported history of bipolar disorder and a chart history of alcohol use disorder who presents under a Reed act by law enforcement alleging that the patient wandered into traffic. The patient was apparently just trying to [place]. Reviewing the electronic medical record, I note that the patient was seen in consultation by Dr. Llamas at the end of January. Patient seen and examined. Chart reviewed. There has been no evidence of any suicidality or homicidality in the ED. On my examination today, the patient says "I was just getting some money from cars" He denies any suicidal or homicidal ideation, intent or plan on direct questioning. He does admit to feeling depressed" now and then" in response to life stressors, but I can elicit no severe depressive symptoms at this time. No hypomanic or manic symptoms. Sleep and appetite are fair. Denies audiovisual hallucinations. No evident delusions. Remainder of psychiatric ROS is negative. Patient is requesting discharge from the ED this afternoon. Past psychiatric history: Patient reports a history of bipolar disorder. Follows at the [facility] and takes Zyprexa with which he reports he is adherent. He reports he hasn't been psychiatrically admitted in several years. He denies history of suicide attempts. Family history: Patient denies family history of mental illness or suicide. Chemical dependency history: Patient reports occasional use alcohol. He denies history of blackouts, DTs or seizures. His urine toxicology was positive for cocaine, for which she provides no explanation. Social history: The patient lives up in [place] [facility]. He is single. He has a daughter in [place]. He is college educated. 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 He served in the [employer]. He denies any access to guns or firearms. Review of Systems Except as stated in HPI: all other systems reviewed are Neg Past Family Social History Coded Allergies: Darvocet-N 100 (Verified Allergy, Severe, 02/26/17) Lisinopril (Unverified Allergy, Severe, 02/26/17) SWELLING Propoxyphene (Verified Allergy, Severe, 02/26/17) Past Medical History See electronic medical record Unable to Obtain Active Prescriptions or Reported Meds Reports that he takes Zyprexa at home. Patient's Strengths (min. 2) Maintaining basic hygiene. Verbally fluent. Physical Exam Physical exam completed by ED provider. On my examination today, the patient appears to be in no acute physical distress. No motor abnormalities noted. No signs of intoxication or withdrawal noted. Labs and vitals reviewed: Vital Signs Vital Signs Date Time Temp Pulse Resp B/P Pulse Ox O2 Delivery O2 Flow Rate FiO2 02/27/17 08:23 57 16 165/105 97 Room Air 02/26/17 19:41 98.9 Lab Results Laboratory Tests Test 02/26/17 02/27/17 19:55 02:15 White Blood Count 7.9 TH/MM3 Red Blood Count 4.48 MIL/MM3 Hemoglobin 14.3 GM/DL Hematocrit 42.7 % Mean Corpuscular Volume 95.3 FL Mean Corpuscular Hemoglobin 32.0 PG Mean Corpuscular Hemoglobin 33.5 % Concent Red Cell Distribution Width 14.7 % Platelet Count 92 TH/MM3 Mean Platelet Volume 9.9 FL Neutrophils (%) (Auto) 78.6 % Lymphocytes (%) (Auto) 14.3 % Monocytes (%) (Auto) 6.0 % Eosinophils (%) (Auto) 0.6 % Basophils (%) (Auto) 0.5 % Neutrophils # (Auto) 6.2 TH/MM3 Lymphocytes # (Auto) 1.1 TH/MM3 Monocytes # (Auto) 0.5 TH/MM3 Eosinophils # (Auto) 0.1 TH/MM3 Basophils # (Auto) 0.0 TH/MM3 CBC Comment AUTO DIFF Differential Comment AUTO DIFF CONFIRMED Platelet Estimate LOW Platelet Morphology Comment NORMAL Sodium Level 145 MEQ/L Potassium Level 3.6 MEQ/L Chloride Level 113 MEQ/L Carbon Dioxide Level 25.7 MEQ/L Anion Gap 6 MEQ/L Blood Urea Nitrogen 24 MG/DL Creatinine 1.30 MG/DL Estimat Glomerular Filtration 57 ML/MIN Rate Random Glucose 93 MG/DL Calcium Level 8.6 MG/DL Total Bilirubin 0.4 MG/DL Aspartate Amino Transf 30 U/L (AST/SGOT) Alanine Aminotransferase 30 U/L (ALT/SGPT) Alkaline Phosphatase 66 U/L Total Protein 6.8 GM/DL Albumin 3.8 GM/DL Thyroid Stimulating Hormone 2.840 uIU/ML 3rd Gen Salicylates Level 4.1 MG/DL Acetaminophen Level LESS THAN 2.0 MCG/ML Ethyl Alcohol Level LESS THAN 3 MG/DL Urine Color YELLOW Urine Turbidity CLEAR Urine pH 6.5 Urine Specific [place] 1.023 Urine Protein TRACE mg/dL Urine Glucose (UA) NEG mg/dL Urine Ketones NEG mg/dL Urine Occult Blood NEG Urine Nitrite NEG Urine Bilirubin NEG Urine Urobilinogen 2.0 MG/DL Urine Leukocyte Esterase NEG Urine WBC 1 /hpf Urine Mucus FEW /lpf Microscopic Urinalysis Comment CULT NOT INDICATED Urine Opiates Screen NEG Urine Barbiturates Screen NEG Urine Amphetamines Screen NEG Urine Benzodiazepines Screen NEG Urine Cocaine Screen POS Urine Cannabinoids Screen NEG Mental Status Examination Patient is in hospital gown. Patient is fairly well groomed and maintaining basic hygiene. Patient is awake and alert and oriented 3. No evidence of delirium. No motor abnormalities appreciated. Speech is within normal limits for rate, tone, volume. Language and fund of knowledge average. Focus and concentration intact. Memory grossly intact on clinical exam. Mood is good. Affect is full and reactive. Thought processes linear. No delusions elicited. Denies audiovisual hallucinations and does not appear internally stimulated. Denies suicidal or homicidal ideation, intent, or plan and contracts for safety. Insight and judgment seem fair. Previous Suicide Attempts: No Previous Homicide Attempts: No Assessment & Plan Problem List: (1) Polysubstance abuse ICD Code: F19.10 Assessment & Plan This is a 56-year-old male with a reported history psychiatric history as detailed above who presents under a Reed act by law enforcement. Patient previously with elevated alcohol level, now with cocaine in his urine. There is no evidence of any unstable mental illness as defined under the Reed act. He denies suicidal or homicidal ideation. He was simply trying to [place]. He appears to be attending to his basic needs. Weighing the relevant factors and based on the available evidence, I responder that the patient does not presently meet Reed act criteria. I have lifted the Reed act. I counseled patient follow up with his outpatient psychiatric provider. I have counseled the patient to consider pursuing chemical dependency evaluation and treatment. I counseled the patient regarding warning signs to return to the psychiatric emergency room as part of a general safety plan. Patient is otherwise psychiatrically clear for discharge from the ED. Thank you very much for this consultation. Donnie West MD Feb 27, 2017 12:10
--- NOTE | 2017-02-27 12:44 | PD ---
Data Data Last Documented VS Vital Signs Date Time Temp Pulse Resp B/P Pulse Ox O2 Delivery O2 Flow Rate FiO2 02/27/17 08:23 57 16 165/105 97 Room Air 02/26/17 19:41 98.9 Orders Complete Blood Count With Diff (02/26/17 19:41) Comprehensive Metabolic Panel (02/26/17 19:41) Thyroid Stimulating Hormone (02/26/17 19:41) Urinalysis - C+S If Indicated (02/26/17 19:41) Electrocardiogram (02/26/17 19:41) Psych Screen (02/26/17 19:41) Drug Screen, Random Urine (02/26/17 19:41) Alcohol (Ethanol) (02/26/17 19:41) Salicylates (Aspirin) (02/26/17 19:41) Tylenol (Acetaminophen) (02/26/17 19:41) Diet Regular Basic (02/27/17 Breakfast) Labs Laboratory Tests Test 02/26/17 02/27/17 19:55 02:15 White Blood Count 7.9 TH/MM3 Red Blood Count 4.48 MIL/MM3 Hemoglobin 14.3 GM/DL Hematocrit 42.7 % Mean Corpuscular Volume 95.3 FL Mean Corpuscular Hemoglobin 32.0 PG Mean Corpuscular Hemoglobin 33.5 % Concent Red Cell Distribution Width 14.7 % Platelet Count 92 TH/MM3 Mean Platelet Volume 9.9 FL Neutrophils (%) (Auto) 78.6 % Lymphocytes (%) (Auto) 14.3 % Monocytes (%) (Auto) 6.0 % Eosinophils (%) (Auto) 0.6 % Basophils (%) (Auto) 0.5 % Neutrophils # (Auto) 6.2 TH/MM3 Lymphocytes # (Auto) 1.1 TH/MM3 Monocytes # (Auto) 0.5 TH/MM3 Eosinophils # (Auto) 0.1 TH/MM3 Basophils # (Auto) 0.0 TH/MM3 CBC Comment AUTO DIFF Differential Comment AUTO DIFF CONFIRMED Platelet Estimate LOW Platelet Morphology Comment NORMAL Sodium Level 145 MEQ/L Potassium Level 3.6 MEQ/L Chloride Level 113 MEQ/L Carbon Dioxide Level 25.7 MEQ/L Anion Gap 6 MEQ/L Blood Urea Nitrogen 24 MG/DL Creatinine 1.30 MG/DL Estimat Glomerular Filtration 57 ML/MIN Rate Random Glucose 93 MG/DL Calcium Level 8.6 MG/DL Total Bilirubin 0.4 MG/DL Aspartate Amino Transf 30 U/L (AST/SGOT) Alanine Aminotransferase 30 U/L (ALT/SGPT) Alkaline Phosphatase 66 U/L Total Protein 6.8 GM/DL Albumin 3.8 GM/DL Thyroid Stimulating Hormone 2.840 uIU/ML 3rd Gen Salicylates Level 4.1 MG/DL Acetaminophen Level LESS THAN 2.0 MCG/ML Ethyl Alcohol Level LESS THAN 3 MG/DL Urine Color YELLOW Urine Turbidity CLEAR Urine pH 6.5 Urine Specific [place] 1.023 Urine Protein TRACE mg/dL Urine Glucose (UA) NEG mg/dL Urine Ketones NEG mg/dL Urine Occult Blood NEG Urine Nitrite NEG Urine Bilirubin NEG Urine Urobilinogen 2.0 MG/DL Urine Leukocyte Esterase NEG Urine WBC 1 /hpf Urine Mucus FEW /lpf Microscopic Urinalysis Comment CULT NOT INDICATED Urine Opiates Screen NEG Urine Barbiturates Screen NEG Urine Amphetamines Screen NEG Urine Benzodiazepines Screen NEG Urine Cocaine Screen POS Urine Cannabinoids Screen NEG MDM Supervised Visit with DAMIAN: No Diagnosis Primary Impression: Depressed affect Patient Instructions: General Instructions, Polysubstance Abuse (ED) Departure Forms: Tests/Procedures Additional Instruction: Follow-up with your outpatient provider. Scripts Unable to Obtain Active Prescriptions or Reported Meds Disposition: 01 DISCHARGE HOME Condition: Stable Marquez Piña MD Feb 27, 2017 12:44
--- NOTE | 2017-02-27 17:12 | EKG ---
Date Performed: 02/26/2017 Time Performed: 20:20:55 PTAGE: 56 years EKG: Sinus rhythm POSSIBLE LEFT ATRIAL ENLARGEMENT BORDERLINE ECG NO PREVIOUS TRACING DOCTOR: Angus Marr Interpretating Date/Time 02/27/2017 17:09:25
== END 2017-02-27 13:23 | disposition home or self-care (01) ==
LOC: NEPD 19:28
DX: Z02.89 Encounter for other administrative examinations (principal); F19.10 Other psychoactive substance abuse, uncomplicated; F32.89 Other specified depressive episodes; R94.31 Abnormal electrocardiogram [ECG] [EKG]; I10 Essential (primary) hypertension; E78.00 Pure hypercholesterolemia, unspecified; F17.200 Nicotine dependence, unspecified, uncomplicated; Z79.01 Long term (current) use of anticoagulants; Z87.39 Personal history of other diseases of the musculoskeletal system and connective tissue; Z86.59 Personal history of other mental and behavioral disorders; Z86.79 Personal history of other diseases of the circulatory system; Z86.69 Personal history of other diseases of the nervous system and sense organs
CPT/HCPCS: 80053; 80307; 81001; 84443; 85025; 93005